=== PATIENT | female | born 1960 | race Two or more races ===

== ENCOUNTER 2018-08-09 15:26 | Outpatient (CLI) | payer OTHER | END 2018-08-09 15:42 | disposition home or self-care (01) | LOC: RAD 501 15:26 | DX: Z01.811 Encounter for preprocedural respiratory examination (principal) ==

== ENCOUNTER 2018-10-18 16:28 | Inpatient (IN) | payer OTHER ==
[~2018-10-18] VITALS: Ht 157.5 cm; Wt 87.1 kg
[2018-10-21] MEDS ORDERED: LISINOPRIL2.5 MG PO (08:15)
[2018-10-21] MEDS ORDERED: AMLODIPINE BESYL5 MG PO (08:16)
[2018-10-21] MEDS ORDERED: PROTONIX40 M1 PO (08:16)
== END 2018-10-30 13:21 | disposition home or self-care (01) | DRG 743 ==
LOC: SURG 10-21 07:15 → O/R 10-26 06:00 → OB/GYN 10-26 06:00 → SURG 10-26 07:00 → EDBD 10-26 07:15 → OB/GYN 10-26 11:49
PROVIDERS: Urology; ADMIT Obstetrics & Gynecology
PROC: 0UT70ZZ Resection of Bilateral Fallopian Tubes, Open Approach (ICD-10-PCS; 2018-10-26)
PROC: 0T9B80Z Drainage of Bladder with Drainage Device, Via Natural or Artificial Opening Endoscopic (ICD-10-PCS; 2018-10-26)
PROC: 0UT90ZZ Resection of Uterus, Open Approach (ICD-10-PCS; principal; 2018-10-26 07:00)
PROC: 0UT20ZZ Resection of Bilateral Ovaries, Open Approach (ICD-10-PCS; 2018-10-26 07:00)
DX: D25.1 Intramural leiomyoma of uterus (principal); D25.2 Subserosal leiomyoma of uterus; N84.0 Polyp of corpus uteri; N73.6 Female pelvic peritoneal adhesions (postinfective)